=== PATIENT | male | born 1955 | race Hispanic/Latino ===

== ENCOUNTER → 2017-07-25 | Outpatient (CLI) | payer OTHER | END | disposition home or self-care (01) | LOC: RAH 06:33 | PROVIDERS: ATTEND Nurse Practitioner Family | DX: M48.061 Spinal stenosis, lumbar region without neurogenic claudication (principal) | CPT/HCPCS: 72148 ==

== ENCOUNTER → 2022-04-26 | Outpatient (CLI) | payer OTHER ==
[~2022-04-26] MED LIST: ASPI-1005 PO; BRIM5DRO4 OP; DULO20CA18 PO; HYDR-4457 PO; LATA7.5D OP; LEVO50 PO; LIDOP TP; TAMS-1 PO
== END | disposition home or self-care (01) ==
LOC: RAH 12:46
PROVIDERS: ATTEND Internal Medicine Cardiovascular Disease
DX: Z13.6 Encounter for screening for cardiovascular disorders (principal); I51.5 Myocardial degeneration
CPT/HCPCS: 75571

== ENCOUNTER → 2024-02-22 | Outpatient (CLI) | payer OTHER ==
[~2024-02-22] MED LIST changes: +ACET-2079 PO; -ASPI-1005 PO; -BRIM5DRO4 OP; -DULO20CA18 PO; -HYDR-4457 PO; -LATA7.5D OP; -LIDOP TP; +LISI10TA24 PO; +ROSU5TAB51 PO
[2024-02-22 15:18] LABS: BODY FLUID RBC 491007 /cu. mm.; BODY FLUID WBC 25800 /cu. mm.
[2024-02-22 15:19] LABS: APPEARANCE BODY FLUID BLOODY (CLEAR); SPECIMENTYPE,BODY FLUID SYNOVIAL
[2024-02-22 15:20] LABS: COLOR,BODY FLUID RED (LT YELLOW); TOTAL VOLUME,BODY FLUID 32 mL
[2024-02-22 16:32] LABS: BF EOSINOPHIL 2 %; BF LYMPHOCYTE 11 %; BF MACROPHAGE 18; BF TOTAL CELLS COUNTED 100
[2024-02-22 21:28] LABS: CRYSTALS, SYNOVIAL FLUID None Seen
== END | disposition home or self-care (01) ==
LOC: LAB 12:14
PROVIDERS: ATTEND Student in an Organized Health Care Education/Training Program
DX: M25.451 Effusion, right hip (principal)
CPT/HCPCS: 87071; 87076; 87205; 89051; 89060